=== PATIENT | male | born 1955 | race African-American/Black ===

== ENCOUNTER 2018-12-11 02:43 | Emergency (ER) | payer MEDICAID ==
[~2018-12-11] VITALS: Ht 175.3 cm; Wt 79.0 kg
[2018-12-11] MEDS ORDERED: MAGNESIUM/ALUMINUM HYDROXIDE/SIMETHICONE 30ML UDC PO ONE (04:00)
[2018-12-11] MEDS ORDERED: VISCOUS LIDOCAINE 2% 15 ML UDC PO ONE (04:00)
[2018-12-11 04:26] LABS: CHLORIDE 106 mEq/L (98-107)
[2018-12-11 04:30] LABS: BASOPHILS % 0.8 % (0.0-2.0); EOSINOPHILS % 5.4 % (0.0-5.0); HEMATOCRIT. 43.7 % (42.0-52.0); HEMOGLOBIN. 14.7 g/dL (14.0-18.0); LYMPHOCYTES % 33.9 % (20.0-50.0); MEAN CORPUSCULAR HEMOGLOBIN 29.5 pg (28.0-32.0); MEAN CORPUSCULAR VOLUME 87.7 fL (80.0-94.0); MEAN PLATELET VOLUME 10.4 fl (7.4-10.4); MONOCYTES % 12.9 % (2.0-8.0); PLATELET 122 x1000/uL (130-400); RED BLOOD CELL COUNT 4.98 mill/uL (4.7-6.1); RED CELL DISTRIBUTION WIDTH 16.2 % (11.6-14.6)
[2018-12-11 09:57] VITALS: BP 105/70
== END 2018-12-11 10:00 | disposition home or self-care (01) ==
LOC: ER 02:43
DX: K21.9 Gastro-esophageal reflux disease without esophagitis (principal)
CPT/HCPCS: 36415; 71045; 83880; 84484; 93005; 99284

== ENCOUNTER 2023-04-17 13:25 | Inpatient (IN) | payer MEDICARE, MEDICAID ==
[~2023-04-17] VITALS: Ht 172.7 cm; Wt 73.5 kg
[2023-04-17] MEDS ORDERED: ACETAMINOPHEN 325MG TABLET PO STA (13:49)
[2023-04-17] MEDS ORDERED: SODIUM CHLORIDE 0.9% 1,000 ML IV ONE (14:00)
[2023-04-17 15:01] LABS: BASOPHILS % 0.1 % (0.0-2.0); EOSINOPHILS % 0.2 % (0.0-5.0); HEMATOCRIT. 39.8 % (42.0-52.0); HEMOGLOBIN. 12.6 g/dL (14.0-18.0); LYMPHOCYTES % 9.3 % (20.0-50.0); MEAN CORPUSCULAR HGB CONC 31.5 g/dL (31.0-37.0); MEAN CORPUSCULAR VOLUME 85.7 fL (80.0-94.0); MEAN PLATELET VOLUME 10.7 fl (7.4-10.4); MONOCYTES % 4.5 % (2.0-8.0); NEUTROPHILS % 85.9 % (40.0-76.0); PLATELET 167 x1000/uL (130-400); RED BLOOD CELL COUNT 4.64 mill/uL (4.7-6.1); WHITE BLOOD COUNT 21.3 x1000/uL (4.5-11.0)
[2023-04-17 15:11] LABS: INR 1.2; PROTHROMBIN TIME 12.4 sec (9.6-11.0)
[2023-04-17 15:20] LABS: CHLORIDE 103 mEq/L (98-107); INDEX HEMOLYSI 1 (1-3); INDEX ICTERIC 2 (1-4); INDEX LIPEMIC 1 (1-3); POTASSIUM 3.6 mEq/L (3.5-5.1); SODIUM 135 mEq/L (136-145)
[2023-04-17 15:24] LABS: ALBUMIN 3.3 g/dL (3.4-5.0); CALCIUM 9.4 mg/dL (8.5-10.1); CARBON DIOXIDE 24 mEq/L (21-32); GLUCOSE 109 mg/dL (70-105); UREA NITROGEN BLOOD 19 mg/dL (7-21)
[2023-04-17 15:30] LABS: ALANINE AMINOTRANSFERASE 137 IU/L (13-61); ASPARTATE AMINOTRANSFERASE 120 IU/L (15-37); BILIRUBIN TOTAL 2.2 mg/dL (0.1-1.0); CREATININE 0.5 mg/dL (0.6-1.3); PROTEIN TOTAL 9.8 g/dL (6.0-8.3)
[2023-04-17] MEDS ORDERED: ACETAMINOPHEN 325MG TABLET PO NR (16:12)
[2023-04-17] MEDS ORDERED: CEFTRIAXONE 1GM PREMIX 50 ML IV ONE (17:00)
[2023-04-17] MEDS ORDERED: ACETAMINOPHEN 325MG TABLET PO PRN (17:45)
[2023-04-17] MEDS ORDERED: IPRATROPIUM/ALBUTEROL 0.5-3(2.5)MG/3ML NEB HHN PRN (17:45)
[2023-04-17] MEDS ORDERED: GUAIFENESIN 200MG/10ML SUGAR FREE UDC PO PRN (17:45)
[2023-04-17] MEDS ORDERED: ONDANSETRON HCL 4MG/2ML INJ IV PRN (17:45)
[2023-04-17] MEDS ORDERED: CEFTRIAXONE 1GM PREMIX 50 ML IV SCH (17:45)
[2023-04-17] MEDS ORDERED: CLONIDINE 0.1MG TABLET PO PRN (17:45)
[2023-04-17] MEDS ORDERED: TRAMADOL 50MG TABLET PO PRN (17:45)
[2023-04-17 17:52] LABS: CLARITY URINE TURBID (CLEAR); COLOR URINE ORANGE (YELLOW); GLUCOSE URINE TRACE (NEGATIVE); KETONES URINE TRACE (NEGATIVE); LEUKOCYTE ESTERASE URINE 2+ (NEGATIVE); NITRITE URINE NEGATIVE (NEGATIVE); OCCULT BLOOD URINE NEGATIVE (NEGATIVE); PH URINE >=9.0 (4.5-8.0); PROTEIN URINE 3+ (NEGATIVE); SPECIFIC GRAVITY URINE 1.017 (1.005-1.030)
[2023-04-17] MEDS ORDERED: NALOXONE HCL 0.4MG/ML VIAL IV PRN (18:00)
[2023-04-17] MEDS ORDERED: AMLODIPINE 5MG TABLET PO NR (18:00)
[2023-04-17] MEDS ORDERED: CEFTRIAXONE 1GM PREMIX 50 ML IV NR (18:00)
[2023-04-17 18:17] LABS: RBC URINE NONE SEEN /hpf (0-2)
[2023-04-17 18:18] LABS: AMORPHOUS SEDIMENT URINE 1+ /lpf; BACTERIA URINE 2+; SQUAMOUS EPITHELIAL CELL URINE FEW /lpf (RARE/1+)
[2023-04-17 18:19] LABS: TRIPLE PHOSPHATE CRYSTAL URINE 1+ /lpf
[2023-04-17 19:05] VITALS: BP 133/70; PULSE 104; RESP 18; TEMP 97.9
[2023-04-18] MEDS: HYDROCODONE/ACETAMINOPHEN 5/325MG TABLET PO PRN ×2 (00:39→09:00)
[2023-04-18 07:20] LABS: BASOPHILS % 0.1 % (0.0-2.0); EOSINOPHILS % 1.7 % (0.0-5.0); HEMATOCRIT. 31.7 % (42.0-52.0); HEMOGLOBIN. 10.3 g/dL (14.0-18.0); LYMPHOCYTES % 11.6 % (20.0-50.0); MEAN CORPUSCULAR HEMOGLOBIN 27.6 pg (28.0-32.0); MEAN CORPUSCULAR HGB CONC 32.3 g/dL (31.0-37.0); MEAN CORPUSCULAR VOLUME 85.5 fL (80.0-94.0); MEAN PLATELET VOLUME 11.3 fl (7.4-10.4); MONOCYTES % 6.2 % (2.0-8.0); NEUTROPHILS % 80.4 % (40.0-76.0); PLATELET 131 x1000/uL (130-400); RED BLOOD CELL COUNT 3.71 mill/uL (4.7-6.1); RED CELL DISTRIBUTION WIDTH 19.9 % (11.6-14.6)
[2023-04-18 07:22] LABS: CHLORIDE 105 mEq/L (98-107); INDEX HEMOLYSI 1 (1-3); INDEX ICTERIC 1 (1-4); INDEX LIPEMIC 1 (1-3); POTASSIUM 3.4 mEq/L (3.5-5.1); SODIUM 135 mEq/L (136-145)
[2023-04-18 07:29] LABS: ALANINE AMINOTRANSFERASE 92 IU/L (13-61); ALBUMIN 2.6 g/dL (3.4-5.0); ASPARTATE AMINOTRANSFERASE 70 IU/L (15-37); BILIRUBIN TOTAL 1.4 mg/dL (0.1-1.0); CALCIUM 8.5 mg/dL (8.5-10.1); CARBON DIOXIDE 24 mEq/L (21-32); CHOLESTEROL 133 mg/dL (<200); CREATININE 0.4 mg/dL (0.6-1.3); GLUCOSE 89 mg/dL (70-105); HDL CHOLESTEROL 50 mg/dL (40-59); LDL CHOLESTEROL 80 mg/dL (5-100); PROTEIN TOTAL 7.8 g/dL (6.0-8.3); TRIGLYCERIDE 54 mg/dL (0-150); UREA NITROGEN BLOOD 19 mg/dL (7-21)
[2023-04-18 08:56] VITALS: BP 100/90; PULSE 87; RESP 20; TEMP 98
[2023-04-18] MEDS: AMLODIPINE 10MG TABLET PO SCH (09:00)
[2023-04-18] MEDS ORDERED: POTASSIUM CHLORIDE 20MEQ TABLET SR PO NR (11:15)
[2023-04-18] MEDS: SODIUM CHLORIDE 0.45% 1,000 ML IV SCH ×3 (12:00→20:40)
[2023-04-18] MEDS: MIDODRINE HCL 5MG TABLET PO SCH ×2 (13:11→16:57)
[2023-04-18] MEDS: CEFTRIAXONE 1,000 MG in DEXTROSE 5% WATER 50 ML IV SCH (13:51)
[2023-04-18] MEDS ORDERED: VANCOMYCIN 1.5 GM in DEXT 5% WATER 250 ML IV NR (14:30)
[2023-04-18 16:18] VITALS: BP 94/45; PULSE 73; RESP 18; TEMP 98
[2023-04-18] MEDS: ENOXAPARIN 40MG/0.4ML SYR SUBCUT SCH ×2 (18:32→18:39)
[2023-04-18] MEDS: DOCUSATE SODIUM 100MG CAPSULE PO PRN (18:40)
[2023-04-18 20:00] VITALS: BP 190/102; PULSE 81; TEMP 97.9
[2023-04-19] MEDS ORDERED: VANCOMYCIN 750MG PREMIX 150 ML IV SCH (03:00)
[2023-04-19 06:38] LABS: BASOPHILS % 0.3 % (0.0-2.0); DIFFERENTIAL COMMENT 0; EOSINOPHILS % 6.2 % (0.0-5.0); HEMATOCRIT. 27.5 % (42.0-52.0); HEMOGLOBIN. 9.2 g/dL (14.0-18.0); LYMPHOCYTES % 23.5 % (20.0-50.0); MEAN CORPUSCULAR HEMOGLOBIN 28.4 pg (28.0-32.0); MEAN CORPUSCULAR HGB CONC 33.4 g/dL (31.0-37.0); MEAN PLATELET VOLUME 10.9 fl (7.4-10.4); MONOCYTES % 9.4 % (2.0-8.0); NEUTROPHILS % 60.6 % (40.0-76.0); PLATELET 107 x1000/uL (130-400); RED BLOOD CELL COUNT 3.24 mill/uL (4.7-6.1); RED CELL DISTRIBUTION WIDTH 19.5 % (11.6-14.6); WHITE BLOOD COUNT 5.2 x1000/uL (4.5-11.0)
[2023-04-19 07:02] LABS: CHLORIDE 94 mEq/L (98-107); INDEX HEMOLYSI 1 (1-3); INDEX ICTERIC 1 (1-4); INDEX LIPEMIC 1 (1-3)
[2023-04-19 07:12] LABS: ALANINE AMINOTRANSFERASE 45 IU/L (13-61); ASPARTATE AMINOTRANSFERASE 37 IU/L (15-37); BILIRUBIN TOTAL 0.9 mg/dL (0.1-1.0); CARBON DIOXIDE 16 mEq/L (21-32); CREATININE 0.2 mg/dL (0.6-1.3); GLUCOSE 70 mg/dL (70-105); UREA NITROGEN BLOOD 8 mg/dL (7-21)
[2023-04-19 07:43] LABS: POTASSIUM 2.7 mEq/L (3.5-5.1); SODIUM 118 mEq/L (136-145)
[2023-04-19 08:00] VITALS: BP 168/72; PULSE 79; RESP 20; TEMP 97.9
[2023-04-19 08:10] LABS: PROTEIN TOTAL 4.3 g/dL (6.0-8.3)
[2023-04-19 08:11] LABS: ALBUMIN 1.4 g/dL (3.4-5.0)
[2023-04-19] MEDS: AMLODIPINE 10MG TABLET PO SCH (08:44)
[2023-04-19] MEDS: MIDODRINE HCL 5MG TABLET PO SCH ×3 (08:47→17:01)
[2023-04-19] MEDS ORDERED: MAGNESIUM SULFATE 3 GM in DEXT 5% WATER 94 ML IV ONE (09:00)
[2023-04-19] MEDS ORDERED: POTASSIUM CHLORIDE INJ 40 MEQ in DEXT 5% WATER 250 ML IV SCH (09:00)
[2023-04-19] MEDS: SODIUM CHLORIDE 0.45% 1,000 ML IV SCH ×2 (10:44→23:20)
[2023-04-19 12:00] VITALS: BP 148/73; PULSE 85; RESP 18; TEMP 97.9
[2023-04-19] MEDS: CEFTRIAXONE 1,000 MG in DEXTROSE 5% WATER 50 ML IV SCH (12:54)
[2023-04-19 14:54] LABS: CHLORIDE 104 mEq/L (98-107); INDEX HEMOLYSI 1 (1-3); INDEX ICTERIC 1 (1-4); INDEX LIPEMIC 1 (1-3); POTASSIUM 3.7 mEq/L (3.5-5.1); SODIUM 135 mEq/L (136-145)
[2023-04-19] MEDS ORDERED: VANCOMYCIN 1G PREMIX 200 ML IV SCH (15:00)
[2023-04-19 15:02] LABS: ALANINE AMINOTRANSFERASE 78 IU/L (13-61); ALBUMIN 2.5 g/dL (3.4-5.0); ASPARTATE AMINOTRANSFERASE 58 IU/L (15-37); BILIRUBIN TOTAL 1.1 mg/dL (0.1-1.0); CALCIUM 8.8 mg/dL (8.5-10.1); CARBON DIOXIDE 24 mEq/L (21-32); CREATININE 0.4 mg/dL (0.6-1.3); GLUCOSE 203 mg/dL (70-105); PROTEIN TOTAL 7.7 g/dL (6.0-8.3); UREA NITROGEN BLOOD 13 mg/dL (7-21)
[2023-04-19 16:00] VITALS: BP 95/51; PULSE 86; RESP 20; TEMP 98.4
[2023-04-19] MEDS: ENOXAPARIN 40MG/0.4ML SYR SUBCUT SCH (18:03)
[2023-04-19] MEDS ORDERED: BISACODYL 10MG SUPP PR NR (18:45)
[2023-04-19 20:00] VITALS: BP 135/65; PULSE 86; RESP 16; TEMP 97.8
[2023-04-20] VITALS: BP 136/71; PULSE 89; RESP 18; TEMP 97.7
[2023-04-20 04:00] VITALS: BP 139/83; PULSE 92; RESP 17; TEMP 97.7
[2023-04-20 08:00] VITALS: BP 116/80; PULSE 60; RESP 19; TEMP 98.5
[2023-04-20] MEDS: AMLODIPINE 10MG TABLET PO SCH (09:00)
[2023-04-20] MEDS: MIDODRINE HCL 5MG TABLET PO SCH ×3 (09:00→14:47)
[2023-04-20] MEDS ORDERED: PREDNISOLONE ACETATE 1% OPHTH DROPS 5ML BOTHEYE PRN (10:15)
[2023-04-20 12:00] VITALS: BP 99/58; PULSE 77; RESP 19; TEMP 95.5
[2023-04-20 13:35] LABS: BASOPHILS % 0.5 % (0.0-2.0); DIFFERENTIAL COMMENT 0; EOSINOPHILS % 6.5 % (0.0-5.0); HEMATOCRIT. 31.7 % (42.0-52.0); HEMOGLOBIN. 10.3 g/dL (14.0-18.0); LYMPHOCYTES % 31.8 % (20.0-50.0); MEAN CORPUSCULAR HEMOGLOBIN 27.8 pg (28.0-32.0); MEAN CORPUSCULAR HGB CONC 32.4 g/dL (31.0-37.0); MEAN CORPUSCULAR VOLUME 85.8 fL (80.0-94.0); MEAN PLATELET VOLUME 11.1 fl (7.4-10.4); MONOCYTES % 14.8 % (2.0-8.0); NEUTROPHILS % 46.4 % (40.0-76.0); PLATELET 127 x1000/uL (130-400); RED CELL DISTRIBUTION WIDTH 19.8 % (11.6-14.6); WHITE BLOOD COUNT 4.7 x1000/uL (4.5-11.0)
[2023-04-20 13:56] LABS: CHLORIDE 107 mEq/L (98-107); INDEX HEMOLYSI 1 (1-3); INDEX ICTERIC 1 (1-4); INDEX LIPEMIC 1 (1-3); POTASSIUM 4.2 mEq/L (3.5-5.1); SODIUM 137 mEq/L (136-145)
[2023-04-20 13:59] LABS: CALCIUM 8.4 mg/dL (8.5-10.1); CARBON DIOXIDE 29 mEq/L (21-32); GLUCOSE 84 mg/dL (70-105); UREA NITROGEN BLOOD 12 mg/dL (7-21)
[2023-04-20 14:04] LABS: CREATININE 0.4 mg/dL (0.6-1.3); PHOSPHORUS 2.6 mg/dL (2.5-4.9)
[2023-04-20] MEDS: CEFTRIAXONE 1,000 MG in DEXTROSE 5% WATER 50 ML IV SCH (14:47)
[2023-04-20] MEDS: SODIUM CHLORIDE 0.45% 1,000 ML IV SCH (14:48)
[2023-04-20 16:00] VITALS: BP 86/50; PULSE 79; RESP 20; TEMP 95.5
[2023-04-20 20:00] VITALS: BP 138/70; PULSE 96; RESP 16; TEMP 98.3
[2023-04-20] MEDS: NAPHAZOLINE HCL/PHENIR MAL OPHTH SOLN 15ML BOTHEYE PRN (20:45)
[2023-04-21] MEDS: SODIUM CHLORIDE 0.45% 1,000 ML IV SCH ×2 (02:00→16:18)
[2023-04-21 04:00] VITALS: BP 151/92; PULSE 80; RESP 16; TEMP 97.3
[2023-04-21 08:00] VITALS: BP 140/68; PULSE 94; RESP 16; TEMP 97.7
[2023-04-21] MEDS: AMLODIPINE 10MG TABLET PO SCH (09:00)
[2023-04-21] MEDS: MIDODRINE HCL 5MG TABLET PO SCH ×4 (09:00→22:14)
[2023-04-21 12:00] VITALS: BP 134/76; PULSE 58; RESP 16; TEMP 96.9
[2023-04-21 16:00] VITALS: BP 135/70; PULSE 60; RESP 17; TEMP 97.5
[2023-04-21] MEDS: CEFTRIAXONE 1,000 MG in DEXTROSE 5% WATER 50 ML IV SCH (16:17)
[2023-04-21] MEDS: FAMOTIDINE 20MG TABLET PO SCH ×2 (16:17→20:19)
[2023-04-21] MEDS: ENOXAPARIN 40MG/0.4ML SYR SUBCUT SCH ×2 (17:48→18:00)
[2023-04-21] MEDS: DOCUSATE SODIUM 100MG CAPSULE PO PRN (19:40)
[2023-04-21] MEDS: NAPHAZOLINE HCL/PHENIR MAL OPHTH SOLN 15ML BOTHEYE PRN (19:45)
[2023-04-21 20:00] VITALS: BP 191/105; PULSE 89; RESP 16; TEMP 98.7
[2023-04-21] MEDS ORDERED: NA PHOS,M-B/NA PHOS,DI-BA ENEMA 118ML PR NR (20:00)
[2023-04-21] MEDS ORDERED: BISACODYL 10MG SUPP PR NR (20:15)
[2023-04-22] VITALS: BP 201/111; PULSE 85; RESP 18; TEMP 97.6
[2023-04-22] MEDS: SODIUM CHLORIDE 0.45% 1,000 ML IV SCH (04:40)
[2023-04-22 07:51] LABS: HEMATOCRIT 34.5 % (42.0-52.0); HEMOGLOBIN 11.4 g/dL (14.0-18.0); MEAN CORPUSCULAR HEMOGLOBIN 28.3 pg (28.0-32.0); MEAN CORPUSCULAR HGB CONC 33.2 g/dL (31.0-37.0); MEAN CORPUSCULAR VOLUME 85.4 fL (80.0-94.0); PLATELET 143 x1000/uL (130-400); RED BLOOD CELL COUNT 4.04 mill/uL (4.7-6.1); RED CELL DISTRIBUTION WIDTH 19.9 % (11.6-14.6); WHITE BLOOD COUNT 4.3 x1000/uL (4.5-11.0)
[2023-04-22 07:57] LABS: CHLORIDE 105 mEq/L (98-107); INDEX HEMOLYSI 1 (1-3); INDEX ICTERIC 1 (1-4); INDEX LIPEMIC 1 (1-3); POTASSIUM 4.4 mEq/L (3.5-5.1); SODIUM 135 mEq/L (136-145)
[2023-04-22 08:00] VITALS: BP 138/97; PULSE 66; RESP 16; TEMP 96.9
[2023-04-22 08:07] LABS: ALANINE AMINOTRANSFERASE 101 IU/L (13-61); ALBUMIN 2.8 g/dL (3.4-5.0); ASPARTATE AMINOTRANSFERASE 103 IU/L (15-37); BILIRUBIN TOTAL 1.3 mg/dL (0.1-1.0); CARBON DIOXIDE 26 mEq/L (21-32); CREATININE 0.4 mg/dL (0.6-1.3); GLUCOSE 96 mg/dL (70-105); PROTEIN TOTAL 8.5 g/dL (6.0-8.3); UREA NITROGEN BLOOD 8 mg/dL (7-21)
[2023-04-22] MEDS: AMLODIPINE 10MG TABLET PO SCH (09:00)
[2023-04-22] MEDS: FAMOTIDINE 20MG TABLET PO SCH (09:00)
[2023-04-22 12:00] VITALS: BP 140/78; PULSE 70; RESP 17; TEMP 97.5
[2023-04-22] MEDS ORDERED: FAMO20TA8 PO (12:37)
[2023-04-22] MEDS ORDERED: SULF1TAB47 MT (12:37)
[2023-04-22] MEDS: CEFTRIAXONE 1,000 MG in DEXTROSE 5% WATER 50 ML IV SCH (13:12)
[2023-04-22] MEDS ORDERED: ONDANSETRON 4MG ODT PO PRN (15:38)
[2023-04-22 16:30] VITALS: BP 126/69; PULSE 82; TEMP 98.3; O2SAT 99
[2023-04-22] MEDS: ENOXAPARIN 40MG/0.4ML SYR SUBCUT SCH (18:05)
== END 2023-04-22 20:15 | disposition home or self-care (01) | DRG 720 ==
LOC: ER 13:25 → 6WST 16:57 → EDBEDREQ 17:02
PROVIDERS: ADMIT Hospitalist; ATTEND Hospitalist
PROC: 0JB70ZZ Excision of Back Subcutaneous Tissue and Fascia, Open Approach (ICD-10-PCS; principal; 2023-04-20)
PROC: 0JB90ZZ Excision of Buttock Subcutaneous Tissue and Fascia, Open Approach (ICD-10-PCS; 2023-04-20)
DX: A41.9 Sepsis, unspecified organism (principal); G82.50 Quadriplegia, unspecified; L89.153 Pressure ulcer of sacral region, stage 3; L89.314 Pressure ulcer of right buttock, stage 4; E43 Unspecified severe protein-calorie malnutrition; N39.0 Urinary tract infection, site not specified; N20.0 Calculus of kidney; I10 Essential (primary) hypertension; E87.1 Hypo-osmolality and hyponatremia; R74.01 Elevation of levels of liver transaminase levels; M86.8X8 Other osteomyelitis, other site; K80.70 Calculus of gallbladder and bile duct without cholecystitis without obstruction; D64.9 Anemia, unspecified; K21.9 Gastro-esophageal reflux disease without esophagitis; Z68.24 Body mass index [BMI] 24.0-24.9, adult
CPT/HCPCS: 36415; 74176; 80048; 80053; 80061; 80202; 81003; 83605; 83735; 84100; 85025; 85027; 93005; 93970; 99285; C1893; J0696; J1650; J3370; J3475; J3480; J7030; J7060

== ENCOUNTER 2025-01-26 15:01 | Inpatient (IN) | payer MEDICARE, MEDICAID ==
[~2025-01-26] VITALS: Ht 175.3 cm; Wt 59.9 kg
[~2025-01-26 15:01] MED LIST: FLUC100T MT; MIDO10TA3 MT; MIDO5TAB4 PO; OXYM30SP26 BOTHNSTRLS; PANT20TA17 PO; SIME80TA16 PO; SODI10PO PO
[2025-01-26 15:02] VITALS: O2SAT 98
[2025-01-26] MEDS: SODIUM CHLORIDE 0.9% (SEPSIS BOLUS) IV ONE (15:26)
[2025-01-26] MEDS: PIPERACILLIN/TAZO 3.375G/50ML 50 ML IV ONE (15:26)
[2025-01-26 15:42] LABS: BASOPHILS % 0.6 % (0.0-2.0); EOSINOPHILS % 8.5 % (0.0-5.0); HEMATOCRIT. 31.3 % (42.0-52.0); HEMOGLOBIN. 10.3 g/dL (14.0-18.0); LYMPHOCYTES % 24.9 % (20.0-50.0); MEAN PLATELET VOLUME 11.2 fl (7.4-10.4); MONOCYTES % 4.5 % (2.0-8.0); NEUTROPHILS % 61.5 % (40.0-76.0); PLATELET 187 x1000/uL (130-400); RED BLOOD CELL COUNT 3.56 mill/uL (4.7-6.1); RED CELL DISTRIBUTION WIDTH 16.3 % (11.6-14.6)
[2025-01-26 15:55] LABS: CREATININE 2.3 mg/dL (0.6-1.3); TROPONIN I HIGH SENSITIVITY 49 ng/L (3.0-53); UREA NITROGEN BLOOD 46 mg/dL (9-23)
[2025-01-26 15:57] LABS: ASPARTATE AMINOTRANSFERASE 22 IU/L (<34); BILIRUBIN DIRECT 0.2 mg/dL (<=3.0); BILIRUBIN TOTAL 0.6 mg/dL (0.1-1.0)
[2025-01-26 15:58] LABS: PROTEIN TOTAL 8.7 g/dL (6.0-8.3)
[2025-01-26] MEDS: MORPHINE SULFATE 4 MG/ML INJ (FOR IV/IM USE) IV ONE (16:11)
[2025-01-26] MEDS: VANCOMYCIN 1G PREMIX 200 ML IV ONE (16:12)
[2025-01-26 18:18] LABS: TROPONIN I HIGH SENSITIVITY 44 ng/L (3.0-53)
[2025-01-26 20:00] VITALS: BP 153/83; PULSE 60; RESP 19; TEMP 36.3; TEMP 37.0296; O2SAT 99
[2025-01-26 22:30] LABS: CLARITY URINE CLEAR (CLEAR); COLOR URINE YELLOW (YELLOW); GLUCOSE URINE NEGATIVE (NEGATIVE); KETONES URINE NEGATIVE (NEGATIVE); LEUKOCYTE ESTERASE URINE 2+ (NEGATIVE); NITRITE URINE NEGATIVE (NEGATIVE); OCCULT BLOOD URINE TRACE (NEGATIVE); PH URINE 6.5 (4.5-8.0); PROTEIN URINE 3+ (NEGATIVE); SPECIFIC GRAVITY URINE 1.010 (1.005-1.030); UROBILINOGEN URINE 0.2 E.U./dL (0.2-1.0)
[2025-01-26] MEDS: CEFTRIAXONE 1GM/50ML 50 ML IV SCH (22:50)
[2025-01-26 22:54] LABS: BACTERIA URINE 2+; RBC URINE 0-2 /hpf (0-2); SQUAMOUS EPITHELIAL CELL URINE FEW /lpf (RARE/1+)
[2025-01-27] VITALS: BP_SYST 119; BP_SYST 78; BP_DIAS 45; BP_DIAS 70; PULSE 66; PULSE 79; RESP 17; RESP 20; TEMP 36.2; TEMP 36.7; O2SAT 100; O2SAT 97
[2025-01-27] MEDS: HYDROCODONE/ACETAMINOPHEN 5/325MG TABLET PO PRN (01:05)
[2025-01-27 04:00] VITALS: BP 150/74; PULSE 64; RESP 19; TEMP 36.7; O2SAT 99
[2025-01-27 08:00] VITALS: BP 185/105; PULSE 68; RESP 18; TEMP 36.3; O2SAT 98
[2025-01-27] MEDS: AMLODIPINE 10MG TABLET PO SCH (09:08)
[2025-01-27] MEDS ORDERED: LACTULOSE 20G/30ML UDC PO NR (11:45)
[2025-01-27] MEDS ORDERED: NALOXONE HCL 0.4MG/ML VIAL IV PRN (11:45)
[2025-01-27] MEDS ORDERED: NA PHOS,M-B/NA PHOS,DI-BA ENEMA 118ML PR NR (11:45)
[2025-01-27 12:00] VITALS: BP 132/76; PULSE 76; RESP 18; TEMP 36.4; O2SAT 96
[2025-01-27] MEDS: TAMSULOSIN HCL 0.4MG SR CAPSULE PO SCH (14:37)
[2025-01-27] MEDS: NIFEDIPINE XL 60MG TAB PO SCH (14:37)
[2025-01-27 16:00] VITALS: BP 99/58; PULSE 70; RESP 18; TEMP 36.4; O2SAT 97
[2025-01-27] MEDS: MIDODRINE HCL 5MG TABLET PO SCH (19:48)
[2025-01-27] MEDS: SODIUM CHLORIDE 0.9% 1,000 ML IV SCH (22:03)
[2025-01-28] VITALS: BP 78/45; PULSE 66; RESP 17; TEMP 36.7; O2SAT 97
[2025-01-28 04:00] VITALS: BP 81/48; PULSE 74; RESP 15; TEMP 36.2; O2SAT 98
[2025-01-28 08:00] VITALS: BP 88/52; PULSE 79; RESP 18; TEMP 36.4; O2SAT 95
[2025-01-28] MEDS: HEPARIN 5000 UNITS/ML VIAL SUBCUT SCH (08:30)
[2025-01-28] MEDS: VANCOMYCIN 750MG PREMIX 150 ML IV SCH (08:32)
[2025-01-28] MEDS: NA PHOS,M-B/NA PHOS,DI-BA ENEMA 118ML PR ONE (11:15)
[2025-01-28 12:00] VITALS: BP 99/58; PULSE 77; RESP 19; TEMP 36.6
[2025-01-28] MEDS ORDERED: LEVO250T74 MT (12:26)
[2025-01-28 13:37] LABS: CREATININE 2.1 mg/dL (0.6-1.3); UREA NITROGEN BLOOD 45.0 mg/dL (9-23)
[2025-01-28] MEDS: LACTULOSE 20G/30ML UDC PO NR (13:39)
[2025-01-28] MEDS ORDERED: TAMS-54 MT (14:52)
[2025-01-28] MEDS ORDERED: MIDO10TA3 MT (14:53)
[2025-01-28 17:58] VITALS: BP 99/58; PULSE 77; RESP 19; TEMP 97.5
== END 2025-01-28 19:20 | disposition home or self-care (01) | DRG 689 ==
LOC: ER 15:01 → EDBEDREQ 17:08 → EDBEDREQTM 17:08 → ENRESERV 18:42 → 6EST 19:14
PROVIDERS: ADMIT Internal Medicine; ATTEND Internal Medicine
DX: N39.0 Urinary tract infection, site not specified (principal); G82.50 Quadriplegia, unspecified; N17.9 Acute kidney failure, unspecified; K56.41 Fecal impaction; N18.9 Chronic kidney disease, unspecified; I12.9 Hypertensive chronic kidney disease with stage 1 through stage 4 chronic kidney disease, or unspecified chronic kidney disease; N40.0 Benign prostatic hyperplasia without lower urinary tract symptoms; Z87.440 Personal history of urinary (tract) infections
CPT/HCPCS: 36415; 71045; 74176; 76770; 80048; 80076; 81003; 83605; 83735; 84484; 85025; 93005; 99291; J0696; J1644; J2270; J2543; J3373; J7030